=== PATIENT | female | born 1940 | race Caucasian/White ===

== ENCOUNTER 2018-05-25 09:13 | Day surgery (SDC) | payer MEDICARE ==
[2018-05-25] MEDS: NS 1,000 ML IV (09:28)
[2018-05-25] MEDS ORDERED: fentaNYL 100 MCG/2 ML INJECTION (J3010) As Ordered (09:56)
[2018-05-25] MEDS ORDERED: LIDOCAINE 2% INJ 100 MG/5 ML SDV (FOR ANES.) As Ordered (09:56)
[2018-05-25] MEDS ORDERED: PROPOFOL 200 MG/20 ML VIAL As Ordered (09:56)
[2018-05-25] MEDS ORDERED: GLYCOPYRROLATE INJ 0.2 MG/ML 2 ML VIAL As Ordered (10:17)
== END 2018-05-25 11:04 | disposition home or self-care (01) ==
LOC: M OPP 09:13
DX: K64.0 First degree hemorrhoids (principal); K62.5 Hemorrhage of anus and rectum; D50.9 Iron deficiency anemia, unspecified; R19.5 Other fecal abnormalities; K57.30 Diverticulosis of large intestine without perforation or abscess without bleeding; K44.9 Diaphragmatic hernia without obstruction or gangrene; I12.9 Hypertensive chronic kidney disease with stage 1 through stage 4 chronic kidney disease, or unspecified chronic kidney disease; N18.9 Chronic kidney disease, unspecified; K21.9 Gastro-esophageal reflux disease without esophagitis; I25.10 Atherosclerotic heart disease of native coronary artery without angina pectoris; Z79.82 Long term (current) use of aspirin; Z79.899 Other long term (current) drug therapy; Z95.5 Presence of coronary angioplasty implant and graft; Z96.0 Presence of urogenital implants; Z87.19 Personal history of other diseases of the digestive system
CPT/HCPCS: 45378